=== PATIENT | female | born 1990 | race Caucasian/White ===

== ENCOUNTER 2016-04-23 18:38 | Emergency (ER) | payer MEDICAID ==
[2016-04-24] MEDS ORDERED: ONDANSETRON 4 MG VIAL ONE (01:44)
[2016-04-24] MEDS ORDERED: KETOROLAC 30 MG/ML VIAL ONE (01:45)
[2016-04-24] MEDS ORDERED: Meclizine HCl 25 MG TAB ONE (01:45)
== END 2016-04-24 01:58 | disposition home or self-care (01) ==
LOC: ER 18:38
DX: H81.393 Other peripheral vertigo, bilateral (principal); H81.13 Benign paroxysmal vertigo, bilateral
CPT/HCPCS: 36415; 80053; 80307; 81003; 84703; 85025; 96374; 96375